=== PATIENT | female | born 1970 | race Caucasian/White ===

== ENCOUNTER → 2016-12-14 | Outpatient (CLI) | payer MEDICAID ==
[~2016-12-14] MED LIST: CARB300C10 PO; MEDR150D9 INJ; TOPI50TA57 PO; ZONI100C48 PO; [UNRECOGNIZED DRUG - CODE] PO
--- NOTE | 2016-12-14 16:30 | DI ---
Indication: ITS.REASON: M25.562 ACUTE PAIN OF LEFT KNEE PROCEDURE: KNEE LEFT 2 VIEW: Encounter: Initial Comparison: None Findings: There is no acute fracture, dislocation or malalignment identified. No significant degenerative change or joint space narrowing. Impression: No acute osseous abnormality. .
== END ==
LOC: IMA 16:01
PROVIDERS: ATTEND Registered Nurse
DX: M25.562 Pain in left knee (principal)

== ENCOUNTER → 2016-12-23 | Outpatient (CLI) | payer MEDICAID | LOC: WC.BC 11:18 | DX: Z12.31 Encounter for screening mammogram for malignant neoplasm of breast (principal); N64.59 Other signs and symptoms in breast ==

== ENCOUNTER 2017-02-04 14:34 | Emergency (ER) | payer MEDICAID ==
[~2017-02-04] VITALS: Ht 162.6 cm; Wt 70.1 kg
[~2017-02-04 14:34] MED LIST changes: +TOPI50TA25 PO; -TOPI50TA57 PO
[2017-02-04 14:37] VITALS: Ht 162.6 cm; Wt 70.1 kg
--- NOTE | 2017-02-04 14:48 | NUR ---
STEVE MARIN IN
--- NOTE | 2017-02-04 14:52 | NUR ---
FRIEND AT BEDSIDE. HE SAYS SHE HAS HAD 12 SEIZURES RECENTLY & SHE IS USUALLY DISORIENTED FOR 45 MINS. HE SAYS THIS IS THE WAY SHE HAS SEIZURES. PT IS FIDGETY & SLOW TO ANSWER OR DOES NOT ANSWER. SHE DOES HAVE EYE CONTACT WITH NURSE
--- NOTE | 2017-02-04 14:58 | ERPDOC ---
Departure Disposition Decision Date: February 04, 2017 Disposition Decision Time: 16:54 Disposition: 01 DISCHARGED HOME, SELF-CARE Impression Impression Impression: Primary Impression: Seizure Severity: Moderate Condition: Stable Seen By: Mid-level only Referrals: JOHNATHAN RUSSO APRN (Family) Patient Instructions: Recurrent Seizures in Adults (ED) Problems/Meds/Labs Reviewed?: Yes Medications reviewed and manag: Yes Additional Instructions: Go home and rest today. Make sure that you are drinking plenty of water at home. Make sure that you are taking your medications as prescribed at home. Follow up care ordered?: Yes Mental Status: Alert, Confused HPI - Fall/Injury General Chief Complaint: Fall Stated Complaint: FALL, CONFUSION Time Seen by Provider: 14:36 Source: patient Exam Limitations: no limitations HPI - Fall/Injury Initial Comments She was at her friends house today and had went inside to go to the bathroom. Her friend states that he had fallen and hit her face on the floor. She has some swelling and an abrasion on the left eyebrow. She does have a history of seizures and is typically post ictal and confused. Upon arrival to Er she is slightly agitated and is not talking. She does follow command and is alert however. Her friend reports this is like her post ictal state. Was noted to have urinary incontinence. Occurred At: home Onset: Rapid Duration: 1/2 hour Severity: moderate Injuries/Pain Location: head, face Context: unknown Loss of Consciousness: unsure Associated Symptoms: other (Difficult to get HPI due to clinical condition) Hx of Similar Symptoms: Yes Allergies: Coded Allergies: No Known Drug Allergies (Verified Adverse Reaction, Unknown, 02/04/17) Past History Past Medical History Hx Echocardiogram: No GI: IBS, constipation Female: UTI Neurological: cerebral hemorrhage, seizures Musculoskeletal: back pain, neck pain Psychological: bipolar, depression Surgical History Denies Surgeries Vaccines Hx Influenza Vaccination: No Hx Tetanus, Diptheria, Pertuss: No (UNKNOWN) Social History Sexuality: male partner Review of Systems Unable to Obtain ROS Due to: clinical condition Physical Exam General General Nourishment: well nourished, well developed, appears stated age, no acute distress, adult General Body Habitus: well groomed Vitals and Pain First Documented Vital Signs Date Time Temp Pulse Resp B/P Pulse Ox O2 Delivery O2 Flow Rate FiO2 02/04/17 14:35 98.5 100 20 111/86 100 Room Air Weight: Kilograms: 70.100 Height (feet): 5 Height (inches): 4.00 Triage Pain Scale: RN VS reviewed by Provider: Yes Normal Exams: Eyes: Pupils are PERRLA w/ EOMI, No scleral icterus, irritation, or foreign bodies noted Neck: Full range of motion, without adenopathy, JVD, bruits or thyromegaly Chest/Resp: Clear all garcia, with good airflow, and symmetry bilaterally CV: Regular rate and rhythm, without murmur or gallop, Pulses 2+ all extremities, capillary refill, <2 seconds all ext., no pedal edema noted Abdomen: Bowel sounds positive, soft, non-tender, non-distended, no hepatosplenomegaly, masses or bruits noted Musculoskeletal: No tenderness, or deformity noted, good range of motion, all extremities Neurologic: Patient is alert Psychiatric: Patient exhibits, appropriate attention, emotion and affect Eyes (brief) Eyes Brief: found: other (She is noted to have ecchymosis, abrasion, and swelling of the left eyebrow.) Differential Diagnoses Considering: Concussion, Contusion, Seizure, Subdural Hematoma, Vasovagal Progress Results/Orders Orders Procedure Category Date Status Time Ct Head W/O Contrast CT 02/04/17 Resulted Cbc W/Auto LAB 02/04/17 Complete Diff-Reflex Manual Bmp - Basic Metabolic LAB 02/04/17 Complete Panel LAB 02/04/17 Complete Qualitative, Urine 15:15 Carbamazepine - LAB 02/04/17 In Process Tegretol - Ams Lab Results Laboratory Tests Test 02/04/17 14:54 02/04/17 15:40 02/04/17 16:20 White Blood Count 5.8T/MM3 Red Blood Count 4.42M/MM3 Hemoglobin 15.1GM/DL Hematocrit 43.9% Mean Corpuscular Volume 99.3UM3 Mean Corpuscular Hemoglobin 34.2UUG Mean Corpuscular Hemoglobin Concent 34.4GM/DL RDW Standard Deviation 41.0FL Platelet Count 220T/MM3 Mean Platelet Volume 11.1UM3 Immature Granulocyte % (Auto) 0.2% Neutrophils (%) (Auto) 68.5% Lymphocytes (%) (Auto) 22.0% Monocytes (%) (Auto) 8.6% Eosinophils (%) (Auto) 0.2% Basophils (%) (Auto) 0.5% Absolute Immature Granulocyte (auto 0.01T/MM3 Absolute Neutrophils (auto) 4.0T/MM3 Absolute Lymphocytes (auto) 1.3T/MM3 Absolute Monocytes (auto) 0.5T/MM3 Absolute Eosinophils (auto) 0.0T/MM3 Absolute Basophils (auto) 0.0T/MM3 Turbidity < 20 Sodium Level 144MEQ/L Potassium Level 3.2MEQ/L Chloride Level 106MEQ/L Carbon Dioxide Level 21MEQ/L Anion Gap 17MEQ/L Blood Urea Nitrogen 8.0MG/DL Creatinine 0.8MG/DL Glomerular Filtration Rate Calc 78 BUN/Creatinine Ratio 10RATIO Glucose Level 118MG/DL Calculated Osmolality 276MOSM/KG Calcium Level 9.4MG/DL Icterus Index < 2 Chemistry Specimen Hemolysis < 15 Urine Test Negative Carbamazepine (Tegretol) Level Pending Progress Progress CBC and BMP today are normal. Ct of head is negative. She is answering questions now and states that she is feeling better. Her roommate is in the room. States that he only called 911 because she fell at the neighbors and was post ictal after her seizure. He could not move her to their house on his own so called EMS to assist with moving patient back to their house. CT CT : Reason for Exam: fall, head injury CT: Head no contrast Interpretation: Normal JANINE VARGAS APRN February 04, 2017 14:57
[2017-02-04] MEDS ORDERED: ZONI100C48 PO (15:03)
[2017-02-04 15:06] LABS: BASOPHILS % (AUTO) 0.5 % (0-2); EOSINOPHILS % (AUTO) 0.2 % (0-4); HCT - HEMATOCRIT 43.9 % (36-46); HGB - HEMOGLOBIN 15.1 GM/DL (12-16); IMMATURE GRANULOCYTE # (AUTO) 0.01 T/MM3 (0.00-0.03); IMMATURE GRANULOCYTE % (AUTO) 0.2 % (0.0-0.5); LYMPHOCYTES # (AUTO) 1.3 T/MM3 (1-4.8); MEAN CORPUSCULAR HGB 34.2 UUG (26-34); MEAN CORPUSCULAR HGB CONC(MCHC 34.4 GM/DL (31-37); MEAN CORPUSCULAR VOLUME 99.3 UM3 (80-100); MEAN PLATELET VOLUME 11.1 UM3 (9.4-12.4); MONOCYTES # (AUTO) 0.5 T/MM3 (0-0.8); MONOCYTES % (AUTO) 8.6 % (0-9.0); NEUTROPHILS % (AUTO) 68.5 % (33-66); RED BLOOD COUNT 4.42 M/MM3 (4.00-5.20); WBC - WHITE BLOOD COUNT 5.8 T/MM3 (4.5-11.0)
[2017-02-04 15:09] LABS: ANION GAP 17 MEQ/L (5-15); BUN/CREATININE RATIO 10 RATIO (6-26); CALCIUM 9.4 MG/DL (8.4-10.2); CHLORIDE 106 MEQ/L (98-107); CO2 - CARBON DIOXIDE 21 MEQ/L (22-30); CREATININE 0.8 MG/DL (0.7-1.2); GLOMERULAR FILTRATION RATE 78; GLUCOSE 118 MG/DL (65-110); POTASSIUM 3.2 MEQ/L (3.6-5); SODIUM 144 MEQ/L (134-144)
--- NOTE | 2017-02-04 15:40 | NUR ---
ACTIVITY UP TO COMMODE. VOIDED FEW CC'S SABAS CLEAR URINE. PT FOLLOWS COMMANDS BUT IS NONVERBAL. PT DOES SHAKE HER HEAD TO YES OR NO.
--- NOTE | 2017-02-04 15:54 | NUR ---
TO CT PER CART
--- NOTE | 2017-02-04 16:02 | NUR ---
RETURNED FROM CT
--- NOTE | 2017-02-04 16:52 | NUR ---
STEVE MARIN IN
[2017-02-04 17:13] VITALS: BP 108/55; PULSE 84; RESP 16; O2SAT 100
--- NOTE | 2017-02-05 09:47 | DI ---
Indication: ITS.REASON: fall, head injury PROCEDURE: CT HEAD W/O CONTRAST: Encounter: Initial Comparison: December 31, 2015 Technique: Axial CT images through the head were performed without contrast. Iterative Reconstruction dose reducing technique was utilized. FINDINGS: The ventricles are of normal size, shape, and configuration for the patient's age. There is no evidence of acute intracranial hemorrhage, midline displacement, or mass effect. The CT attenuation of the brain parenchyma is normal within the cerebellum, brain stem, and cerebral hemispheres. The tympanic cavities and mastoid air cells are free of appreciable disease. There are no definite fractures of the skull base, calvarium, or visualized portion of the midface. IMPRESSION: No CT evidence of acute traumatic intracranial injury. There is a preliminary report by [facility]. .
== END 2017-02-04 17:13 | disposition home or self-care (01) ==
LOC: ED 14:34
DX: S00.12XA Contusion of left eyelid and periocular area, initial encounter (principal); S00.212A Abrasion of left eyelid and periocular area, initial encounter; R56.9 Unspecified convulsions; W19.XXXA Unspecified fall, initial encounter; Y93.89 Activity, other specified; Y92.009 Unspecified place in unspecified non-institutional (private) residence as the place of occurrence of the external cause; Y99.8 Other external cause status
CPT/HCPCS: 80048; 80156; 81025; 85025

== ENCOUNTER 2017-02-05 02:07 | Emergency (ER) | payer MEDICAID ==
[~2017-02-05] VITALS: Ht 162.6 cm; Wt 70.0 kg
[2017-02-05 02:07] VITALS: Ht 162.6 cm; Wt 70.0 kg
--- OUTSIDE RECORDS SUMMARY | 2017-02-05 02:10 | XMS REPORT | Continuity of Care Document ---
Author Author [facility] Organization [facility] Address Unknown Phone Unavailable Support Name Relationship Address Phone JOHNATHAN RUSSO APRN Caregiver [address] [place] [address] Unavailable DESTINEY ACKERMAN MD Caregiver [address] [place] [address] Unavailable SKY CALDWELL Next Of Kin [address] [place] [address] Insurance Providers Guarantor AshutoshPedro Address [address] [place] [id number] Email DENIED/NO COMPUTER OR EMAIL 16 Payer [facility] Community Plan Policy Number [id number] Subscriber's Name Pedro Ibrahim Relationship 18 Self Effective Date 17 Expiration Date 17 Chief Complaint and Reason for Visit Chief Complaint Fall Reason for Visit Seizure Problems Active Problems Medical Problem Onset Date Status Abdominal cramps Unknown Acute Abdominal cramps Unknown Acute Christina rash of groin Unknown Acute Christina rash of groin Unknown Acute Closed head injury Unknown Acute Contusion of ribs Unknown Acute Dehydration Unknown Acute Head contusion Unknown Acute Head contusion Unknown Acute Intertrigo Unknown Acute Intertrigo Unknown Acute Laceration Unknown Acute Laceration of head Unknown Acute Left temporal lobe hemorrhage Unknown Acute Lip laceration Unknown Acute Neck pain Unknown Acute Pruritic rash Unknown Acute Rib pain on right side Unknown Acute Seizure Unknown Acute Seizure Unknown Acute Seizure disorder Unknown Acute Seizure disorder Unknown Acute Tinea pedis Unknown Acute Tooth avulsion Unknown Acute Past Problems Medical Problem Onset Date Seizure Unknown Medications Current Home Medications Medication Dose Units Route Directions Days Qty Instructions Start Date Carbamazepine 300 Mg Cpmp.12hr 300 Mg Oral Twice A Day 07/30/14 Medroxyprogesterone Acetate (Depo-Provera) 150 Mg/1 Ml Syringe 150 Mg Injection [id number] 07/30/14 Topiramate 50 Mg Tablet 50 Mg Oral Every Morning 07/30/14 Topiramate 50 Mg Tablet 100 Mg Oral Bedtime 07/30/14 Zonisamide (Zonegran) 100 Mg Capsule 200 Mg Oral Bedtime 12/31/15 Zonisamide (Zonegran) 100 Mg Capsule 100 Mg Oral Every Morning Past Home Medications Medication Directions Ordered Status Albuterol 17 Gm Aerosol, 05/03/09 Discontinued Baclofen 10 Mg Tablet, 2 Bedtime 10/05/09 Discontinued Carbamazepine (Carbatrol) 300 Mg Capsule, 300 Mg Oral Twice A Day 11/25/10 Discontinued Carbamazepine (Carbatrol) 300 Mg Capsule, 300 Mg Oral Twice A Day 06/23/10 Discontinued Desonide 15 Gm Cream..g., 0 Topically Three Times A Day 05/14/14 Discontinued Hyoscyamine 0.15 Mg Tablet, 0.125 Mg Oral As Needed 01/14/12 Discontinued Ibuprofen (Advil) 100 Mg Tablet, 100 Mg Oral Daily 12/03/10 Discontinued Ketorolac Tromethamine (Toradol) 10 Mg Tablet, 1 As Needed 10/21/09 Discontinued Levaquin , 05/12/09 Discontinued Loperamide Hcl (Imodium) 2 Mg Capsule, As Needed 11/25/10 Discontinued Medroxyprogesterone Acet (Depo-Provera) 150 Mg/Ml Disp.syrin, 150 Mg Intramusc Q3uaicl 11/20/11 Discontinued Metoclopramide Hcl 10 Mg Tablet, 10 Mg Oral Four Times Daily 01/14/12 Discontinued Metoclopramide Hcl (Reglan) 10 Mg Tablet, 10 Mg Oral 11/25/10 Discontinued Metoclopramide Hcl (Reglan) 10 Mg Tablet, 10 Mg Oral Four Times Daily Discontinued Naproxen 500 Mg Tablet, 500 Mg Oral Twice A Day 11/25/10 Discontinued Omeprazole (Prilosec) 20 Mg Capsule., 1 Daily 10/21/09 Discontinued Prednisone , 05/12/09 Discontinued Promethazine Hcl (Phenergan) 25 Mg Tablet, Prn 11/25/10 Discontinued Promethazine Hcl (Phenergan) 25 Mg Tablet, 25 Mg Oral Every 4 Hours Prn 05/16 Discontinued Promethazine Hcl (Phenergan) 25 Mg Tablet, 1 As Needed 10/21/09 Discontinued Ranitidine Hcl 300 Mg Capsule, 300 Mg Oral Daily 01/14/12 Discontinued Ranitidine Hcl 300 Mg Tablet, 300 Mg Oral 04/11/11 Discontinued Tussionex , 05/12/09 Discontinued Zonisamide 100 Mg Capsule, 100 Mg Oral Twice A Day 11/25/10 Discontinued Zonisamide (Zonegran) 25 Mg Capsule, 100 Mg Oral Twice A Day 05/16/10 Discontinued Social History Social History Problem Response Recorded Date/Time Onset Date Status Hx Substance Use No 02/04/2017 2:49pm Not Applicable Not Applicable Hx Alcohol Use No 02/04/2017 2:49pm Not Applicable Not Applicable Tobacco Usage smoke 04/03/2014 8:58am Not Applicable Not Applicable Query Response Start Date Stop Date Smoking Status Current every day smoker Hospital Discharge Instructions No hospital discharge instructions. Plan of Care Discharge Date 02/04/17 5:13pm Disposition 01 DISCHARGED HOME, SELF-CARE Condition at Discharge Stable Instructions/Education Provided Recurrent Seizures in Adults (ED) Prescriptions See Medication Section Referrals JOHNATHAN RUSSO APRN Address: [address] [place] [address] [phone] Additional Instructions/Education Go home and rest today. Make sure that you are drinking plenty of water at home. Make sure that you are taking your medications as prescribed at home. Care Plan and Goals Physician Care Plan Problem:Seizure, Fall Goal: Follow up with primary care provider Instructions: Take medications and follow care plan as discussed/written Functional Status No functional status results. Allergies, Adverse Reactions, Alerts Allergen Type Severity Reaction Status Last Updated No Known Drug Allergies Adverse Reaction Unknown Active 02/04/17 Immunizations Query Response on File Recorded Date/Time Hx Influenza Vaccination No 04/14/15 6:42pm Hx Tetanus, Diptheria, Pertussis N UNKNOWN 04/14/15 7:41pm Hx Influenza Vaccination No 04/14/15 6:42pm Hx Tetanus, Diptheria, Pertussis N UNKNOWN 04/14/15 7:41pm Tdap Vaccine Hx UNKNOWN 02/04/17 2:50pm Vital Signs Acute Vital Signs Vital Response Date/Time Temperature (Fahrenheit) 98.9 deg F (96.8 - 99.1) 02/04/2017 4:21pm Temperature (Calculated Celsius) 37.32698 degrees C (36.0 - 37.3) 02/04/2017 4:21pm Pulse Rate (adult) 84 bpm (60 - 100) 02/04/2017 5:13pm Respiratory Rate 16 breaths/min (10 - 20) 02/04/2017 5:13pm O2 Sat by Pulse Oximetry 100 % (90 - 100) 02/04/2017 5:13pm Blood Pressure 108/55 mm Hg 02/04/2017 5:13pm Height (Feet) 5 feet 02/04/2017 2:37pm Height (Inches) 4.00 inches 02/04/2017 2:37pm Weight (Kilograms) 70.100 kg 02/04/2017 2:37pm Body Mass Index (BMI) 26.0 02/04/2017 2:37pm Results Laboratory Results Test Name Result Units Flags Reference Collection Date/Time Result Date/ Time Comments White Blood Count 5.8 T/MM3 4.5-11.0 02/04/2017 2:54pm 02/04/2017 3: 06pm Red Blood Count 4.42 M/MM3 4.00-5.20 02/04/2017 2:54pm 02/04/2017 3: 06pm Hemoglobin 15.1 GM/DL 12-16 02/04/2017 2:54pm 02/04/2017 3:06pm Hematocrit 43.9 % 36-46 02/04/2017 2:54pm 02/04/2017 3:06pm Mean Corpuscular Volume 99.3 UM3 80-100 02/04/2017 2:54pm 02/04/2017 3: 06pm Mean Corpuscular Hemoglobin 34.2 UUG H 26-34 02/04/2017 2:54pm 2016 3:06pm Mean Corpuscular Hemoglobin Concent 34.4 GM/DL 31-37 02/04/2017 2:54pm 02/04/2017 3:06pm RDW Standard Deviation 41.0 FL 36.9-50.2 02/04/2017 2:54pm 02/04/2017 3 :06pm Platelet Count 220 T/MM3 130-400 02/04/2017 2:54pm 02/04/2017 3:06pm Mean Platelet Volume 11.1 UM3 9.4-12.4 02/04/2017 2:54pm 02/04/2017 3: 06pm Neutrophils (%) (Auto) 68.5 % H 33-66 02/04/2017 2:54pm 02/04/2017 3: 06pm Lymphocytes (%) (Auto) 22.0 % L 23-45 02/04/2017 2:54pm 02/04/2017 3: 06pm Monocytes (%) (Auto) 8.6 % 0-9.0 02/04/2017 2:54pm 02/04/2017 3:06pm Eosinophils (%) (Auto) 0.2 % 0-4 02/04/2017 2:54pm 02/04/2017 3:06pm Basophils (%) (Auto) 0.5 % 0-2 02/04/2017 2:54pm 02/04/2017 3:06pm Immature Granulocyte % (Auto) 0.2 % 0.0-0.5 02/04/2017 2:54pm 2016 3:06pm Absolute Neutrophils (auto) 4.0 T/MM3 1.8-7.7 02/04/2017 2:54pm 2016 3:06pm Absolute Lymphocytes (auto) 1.3 T/MM3 1-4.8 02/04/2017 2:54pm 2016 3:06pm Absolute Monocytes (auto) 0.5 T/MM3 0-0.8 02/04/2017 2:54pm 02/04/2017 3:06pm Absolute Eosinophils (auto) 0.0 T/MM3 0-0.5 02/04/2017 2:54pm 2016 3:06pm Absolute Basophils (auto) 0.0 T/MM3 0-0.2 02/04/2017 2:54pm 02/04/2017 3:06pm Absolute Immature Granulocyte (auto 0.01 T/MM3 0.00-0.03 02/04/2017 2: 54pm 02/04/2017 3:06pm Icterus Index < 2 0-7 02/04/2017 2:pm 02/04/2017 3:09pm Chemistry Specimen Hemolysis < 15 0-25 02/04/2017 2:54pm 02/04/2017 3 :09pm 0-25: Specimen Exhibited No Hemolysis. Turbidity < 20 0-20 02/04/2017 2:pm 02/04/2017 3:09pm Sodium Level 144 MEQ/L 134-144 02/04/2017 2:54pm 02/04/2017 3:09pm Potassium Level 3.2 MEQ/L L 3.6-5 02/04/2017 2:54pm 02/04/2017 3:09pm Chloride Level 106 MEQ/L 98-107 02/04/2017 2:54pm 02/04/2017 3:09pm Carbon Dioxide Level 21 MEQ/L L 22-30 02/04/2017 2:54pm 02/04/2017 3: 09pm Anion Gap 17 MEQ/L H 5-15 02/04/2017 2:54pm 02/04/2017 3:09pm Blood Urea Nitrogen 8.0 MG/DL 7-17 02/04/2017 2:54pm 02/04/2017 3:09pm Creatinine 0.8 MG/DL 0.7-1.2 02/04/2017 2:54pm 02/04/2017 3:09pm BUN/Creatinine Ratio 10 RATIO 6-26 02/04/2017 2:54pm 02/04/2017 3:09pm Glomerular Filtration Rate Calc 78 02/04/2017 2:54pm 02/04/2017 3: 09pm Glucose Level 118 MG/DL H 65-110 02/04/2017 2:54pm 02/04/2017 3:09pm Calculated Osmolality 276 MOSM/KG 261-280 02/04/2017 2:54pm 02/04/2017 3:09pm Calcium Level 9.4 MG/DL 8.4-10.2 02/04/2017 2:54pm 02/04/2017 3:09pm Procedures Procedure Status Date Provider(s) X-ray exam of knee 1 or 2 Completed 12/14/16 Breast tomosynthesis bi Completed 12/23/16 Scr mammo bi incl cad Completed 12/23/16 Encounters Encounter Location Arrival/Admit Date Discharge/Depart Date Attending Provider Departed Emergency Room [facility] 02/04/17 2:34pm 02/04/17 5: 13pm DESTINEY ACKERMAN MD Registered Clinic [facility] 12/23/16 11:18am [facility] Registered Clinic [facility] 12/14/16 4:01pm JOHNATHAN RUSSO APRN Recent Diagnosis
[2017-02-05] MEDS ORDERED: LORAZEPAM 2 MG/ML INJECTION IV ONE (02:15)
--- NOTE | 2017-02-05 02:15 | NUR ---
STATUS PT IS VERY AGITATED AND TRYING TO SCOOT OFF THE CART GRABS AT IVL IN HER HAND AND TRIES TO PULL IT OUT EYES ARE OPEN AND PT IS HAVING EYE CONTACT WITH STAFF, BUT NOT SEEMING TO COMPREHEND AND DOES NOT FOLLOW COMMANDS
--- NOTE | 2017-02-05 02:17 | NUR ---
ATIVAN IV ATIVAN GIVEN ORDERED
--- NOTE | 2017-02-05 02:20 | NUR ---
AGITATION PT HELD BY 2 STAFF TO KEEP ON CART AND PREVENT IVL FROM BEING PULLED OUT PT NOT TRYING TO VERBALIZE BUT HAS FROWN ON HER FACE AND STARING INTO STAFFS EYES LIKE SHE IS TRYING TO CONCENTRATE. DOES NOT FOLLOW COMMANDS, WILL NOT LEAVE SAO2 PROBE ON FINGER AND TRYING TO REMOVE THE B/P CUFF. TRIES TO PULL AWAY WHILE GETTING AXILLARY TEMP.
--- NOTE | 2017-02-05 02:22 | ERPDOC ---
Departure Disposition Decision Date: February 05, 2017 Disposition Decision Time: 03:51 Disposition: 01 DISCHARGED HOME, SELF-CARE Impression Impression Impression: Primary Impression: Agitation Additional Impression: Confusion Severity: Severe Condition: Improved Seen By: Physician only Referrals: JOHNATHAN RUSSO APRN (Family) Patient Instructions: Bipolar Disorder (ED) Problems/Meds/Labs Reviewed?: Yes Medications reviewed and manag: Yes Additional Instructions: Take prescribed medication only as directed See Dr. Mancera next week. Call for appointment Follow up care ordered?: Yes Mental Status: Alert HPI - Psychosocial General Stated Complaint: CONFUSED Time Seen by MD: 02:10 Source: EMS Exam Limitations: clinical condition HPI - Psychosocial Initial Comments Patient presents by EMS with complaints by her roommate that the patient was seen earlier today for a seizure, after extensive workup including normal lab and an CT scan, the patient went home and took her Topamax for her seizure disorder. The roommate states that he thinks that she took too much of the Topamax, and since then has been confused and agitated like she is after she has a seizure. Patient has had multiple episodes this week of confusion with agitation, and the people who know the patient states this is how she acts after she has had seizures. Patient is noncommunicative at this time, stares blankly, and is not responsive to verbal commands. Patient is awake, seems alert, but disoriented. Occurred At: home Onset: Rapid, Gradual Severity: moderate Associated Symptoms: impaired concentration Allergies: Coded Allergies: No Known Drug Allergies (Verified Adverse Reaction, Unknown, 02/04/17) Past History Past Medical History Hx Echocardiogram: No GI: IBS, constipation Female: UTI Neurological: cerebral hemorrhage, seizures Musculoskeletal: back pain, neck pain Psychological: bipolar, depression Surgical History Denies Surgeries Vaccines Hx Influenza Vaccination: No Hx Tetanus, Diptheria, Pertuss: No (UNKNOWN) Social History Smoking Status: Current every day smoker Does patient use chewing tobac: No Second Hand Exposure: No Substance Use Type: does not use Alcohol Intake: none Sexuality: male partner Record Review Pertinent history updated: Yes Review of Systems Unable to Obtain ROS Due to: clinical condition Comments Per EMS, the patient's roommate stated that the patient had no other review of symptoms that were positive on the scene ENMT Ears: DENIES: pain Hearing: DENIES: hearing loss, tinnitus Balance: DENIES: vertigo Mouth/Throat: DENIES: change in swallowing, change in voice, hoarsness, painful swallowing, sore throat Physical Exam General General Nourishment: well nourished, well developed, appears stated age General Body Habitus: disheveled Vitals and Pain Weight: Kilograms: Height (feet): 5 Height (inches): 4.00 Triage Pain Scale: RN VS reviewed by Provider: Yes Comments Patient looks absolutely about, appears disoriented, but is alert. Normal Exams: Head: Normocephalic w/o trauma Eyes: Pupils are PERRLA w/ EOMI, No scleral icterus, irritation, or foreign bodies noted ENMT: No facial trauma, nasal exudates, pharyngeal erythema, or exudates are noted Neck: Full range of motion, without adenopathy, JVD, bruits or thyromegaly Chest/Resp: Clear all garcia, with good airflow, and symmetry bilaterally CV: Regular rate and rhythm, without murmur or gallop, Pulses 2+ all extremities, capillary refill, <2 seconds all ext., no pedal edema noted Abdomen: Bowel sounds positive, soft, non-tender, non-distended, no hepatosplenomegaly, masses or bruits noted Lymphatic: No lymphadenopathy, or lymphedema noted Musculoskeletal: No tenderness, or deformity noted, good range of motion, all extremities Integumentary: No rashes, hives, or bruising noted, hair and nails, without abnormality Neurologic: Patient is alert, and oriented, cranial nerves, motor/sensory/ cerebellar, exams w/o gross deficits, to observation Neurologic (brief) Neurological Brief: FOUND: CN w/o gross def to obs, motor-no gross deficits, sensory-no gross deficits, NOT FOUND: ataxia Psychiatric (brief) Psychiatric Brief: FOUND: alert, NOT FOUND: attentive, normal affect, oriented Progress Results/Orders Orders Procedure Category Date Status Time Iv Lock (Ed Only) EDM 02/05/17 Transmitted 02:15 Cmp - Comprehensive LAB 02/05/17 Complete Metabolic Ethanol LAB 02/05/17 Complete Drug Screen LAB 02/05/17 [place] [facility] [place] Ua, Dip Wreflex LAB 02/05/17 Complete [employer] 02:15 LAB 02/05/17 Complete Qualitative, Urine 02:15 Cbc W/Auto LAB 02/05/17 Complete Diff-Reflex Manual Prolactin LAB 02/05/17 Complete 02:15 Lorazepam (Ativan) PHA 02/05/17 Complete 02:15 Normal Saline (Normal PHA 02/05/17 Complete Saline Iv) 02:45 Lab Results Laboratory Tests Test 02/05/17 02:36 02/05/17 02:37 02/05/17 02:40 Turbidity < 20 Sodium Level 142MEQ/L Potassium Level 3.2MEQ/L Chloride Level 107MEQ/L Carbon Dioxide Level 18MEQ/L Anion Gap 17MEQ/L Blood Urea Nitrogen 8.0MG/DL Creatinine 0.8MG/DL Glomerular Filtration Rate Calc 78 BUN/Creatinine Ratio 10RATIO Glucose Level 106MG/DL Calculated Osmolality 271MOSM/KG Calcium Level 9.5MG/DL Total Bilirubin 0.70MG/DL Icterus Index < 2 Aspartate Amino Transf (AST/SGOT) 15U/L Alanine Aminotransferase (ALT/SGPT) 32U/L Alkaline Phosphatase 84U/L Total Protein 7.1G/DL Albumin 4.7G/DL Globulin 2.4G/DL Albumin/Globulin Ratio 2.0RATIO Chemistry Specimen Hemolysis 15 Alcohol, Quantitative <10MG/DL White Blood Count 8.0T/MM3 Red Blood Count 4.32M/MM3 Hemoglobin 14.7GM/DL Hematocrit 42.3% Mean Corpuscular Volume 97.9UM3 Mean Corpuscular Hemoglobin 34.0UUG Mean Corpuscular Hemoglobin Concent 34.8GM/DL RDW Standard Deviation 40.9FL Platelet Count 222T/MM3 Mean Platelet Volume 11.3UM3 Immature Granulocyte % (Auto) 0.1% Neutrophils (%) (Auto) 69.9% Lymphocytes (%) (Auto) 19.2% Monocytes (%) (Auto) 9.9% Eosinophils (%) (Auto) 0.5% Basophils (%) (Auto) 0.4% Absolute Immature Granulocyte (auto 0.01T/MM3 Absolute Neutrophils (auto) 5.6T/MM3 Absolute Lymphocytes (auto) 1.5T/MM3 Absolute Monocytes (auto) 0.8T/MM3 Absolute Eosinophils (auto) 0.0T/MM3 Absolute Basophils (auto) 0.0T/MM3 Prolactin < 0.1NG/ML Urine Collection Type Straight cath Urine Color Yellow Urine Turbidity Clear Urine pH 7.0 Urine Specific Kyle 1.015 Urine Protein Negative Urine Glucose (UA) Negative Urine Ketones 3+ Urine Blood Negative Urine Nitrite Negative Urine Bilirubin 2+ Urine Urobilinogen 2.0EU/DL Urine Leukocyte Esterase Negative Urinalysis Comment Microscopic not ind. Urine Test Negative Urine Opiates Screen NegativeNG/ML Urine Oxycodone Screen NegativeNG/ML Urine Methadone Screen NegativeNG/ML Urine Propoxyphene Screen NegativeNG/ML Urine Barbiturates Screen NegativeNG/ML Urine Tricyclic Antidepressants NegativeNG/ML Urine Phencyclidine Screen NegativeNG/ML Urine Amphetamines Screen NegativeNG/ML Urine Methamphetamines Screen NegativeNG/ML Urine Benzodiazepines Screen NegativeNG/ML Urine Cocaine Screen NegativeNG/ML Urine Cannabinoids Screen NegativeNG/ML Medications Current ED Medications Lorazepam 2 mg 2 mg O ONCE IV ; Start 02/05/17 at 02:15; Stop 02/05/17 at 02:18 ; Status DC Sodium Chloride (Normal Saline IV) 1,000 ml @ 0 mls/hr Q0M ONCE IV ; Start at 02:45; Stop 02/05/17 at 02:46; Status DC Progress Progress Due to the patient's agitation, and her grasping at her IV as well as trying to climb out of bed, patient is given 2 mg Ativan IV CBC - normal CMP - normal EtOH - negative UDS - normal UA/P - normal/negative Prolactin - normal After Ativan patient has been sleeping peacefully, without agitation. This point is uncertain whether the patient has been having psychogenic agitation or has taken too much of her seizure medication. Patient does not exhibit any toxidrome for medication overdose, with bipolar history, start the patient most likely has histrionic confusion with agitation. Pt released in the care of her significant other. JANETTE LUNA MD February 05, 2017 02:22
--- NOTE | 2017-02-05 02:39 | NUR ---
BLADDER SCAN PT AROUSES WHEN STAFF ADJUSTS HER CLOTHING FOR BLADDER SCAN ANOTHER STAFF HAS TO HOLD HER ARMS TO GET THE SCAN DONE EXPLAINED THIS TO PT SEVERAL TIMES AND SHE DOES SAY "OK", BUT STILL PULLS AT HER GOWN
--- NOTE | 2017-02-05 02:40 | NUR ---
ST CATH #[address] CATH INSERTED TO DRAIN BLADDER OF 150CC CLEAR SABAS URINE PT AWAKE AND SEMI-COOPERATIVE WITH PROCEDURE LAB HERE FOR URINE SPEC FOR UDS AND UA
--- NOTE | 2017-02-05 02:44 | NUR ---
STATUS PT PULLING AT CLOTHES AND PUSHING AT STAFF WHEN TRYING TO GET JEANS OFF FOR CATH SHE IS CALM AND TURNS ON HER SIDE AFTER PANTIES BACK ON AND SHE IS COVERED WITH BLANKET AGAIN.
[2017-02-05] MEDS ORDERED: NORMAL SALINE 1,000 ML IV ONE (02:45)
--- NOTE | 2017-02-05 02:47 | NUR ---
IV FLUID #1 IV 1000CC NS STARTED AT 999CC/HR IV SITE PATENT WITHOUT REDNESS OR SWELLING STAFF HAS TO SIT AND HOLD HAND OVER IV SITE, OTHERWISE SHE KEEPS GRABBING FOR THE IV PT REMAINS AGITATED AND WHEN SHE TRIES TO COMMUNICATE WORDS ARE STILL GARBLED AND INCOMPREHENSIBLE. DR LUNA AWARE OF PT STATUS
[2017-02-05 02:48] LABS: BLOOD, URINE NEGATIVE (NEGATIVE); COLOR,URINE YELLOW (YELLOW); LEUKOCYTE ESTERASE ,URINE NEGATIVE (NEGATIVE); NITRITE,URINE NEGATIVE (NEGATIVE)
[2017-02-05 02:49] LABS: BASOPHILS % (AUTO) 0.4 % (0-2); EOSINOPHILS % (AUTO) 0.5 % (0-4); HCT - HEMATOCRIT 42.3 % (36-46); HGB - HEMOGLOBIN 14.7 GM/DL (12-16); IMMATURE GRANULOCYTE # (AUTO) 0.01 T/MM3 (0.00-0.03); IMMATURE GRANULOCYTE % (AUTO) 0.1 % (0.0-0.5); LYMPHOCYTES # (AUTO) 1.5 T/MM3 (1-4.8); LYMPHOCYTES % (AUTO) 19.2 % (23-45); MEAN CORPUSCULAR HGB CONC(MCHC 34.8 GM/DL (31-37); MEAN CORPUSCULAR VOLUME 97.9 UM3 (80-100); MEAN PLATELET VOLUME 11.3 UM3 (9.4-12.4); MONOCYTES # (AUTO) 0.8 T/MM3 (0-0.8); MONOCYTES % (AUTO) 9.9 % (0-9.0); NEUTROPHILS #(AUTO)-ABSOLUTE 5.6 T/MM3 (1.8-7.7); NEUTROPHILS % (AUTO) 69.9 % (33-66); RED BLOOD COUNT 4.32 M/MM3 (4.00-5.20)
[2017-02-05 02:56] LABS: AMPHETAMINE SCREEN,URINE NEGATIVE; BARBITURATE SCREEN,URINE NEGATIVE; BENZODIAZEPINES SCREEN,URINE NEGATIVE; CANNABINOID SCREEN,URINE NEGATIVE; COCAINE SCREEN,URINE NEGATIVE; METHADONE SCREEN, URINE NEGATIVE; METHAMPHETAMINE SCREEN, URINE NEGATIVE; OPIATE SCREEN,URINE NEGATIVE; PHENCYCLIDINE SCREEN,URINE NEGATIVE; TRICYCLIC ANTIDEPRESSANT,URINE NEGATIVE
[2017-02-05 02:57] LABS: ALBUMIN 4.7 G/DL (3.5-5.0); ALKALINE PHOSPHATASE 84 U/L (38-126); ALT (SGPT) 32 U/L (9-52); ANION GAP 17 MEQ/L (5-15); AST (SGOT) 15 U/L (14-36); BUN/CREATININE RATIO 10 RATIO (6-26); CALCIUM 9.5 MG/DL (8.4-10.2); CHLORIDE 107 MEQ/L (98-107); CO2 - CARBON DIOXIDE 18 MEQ/L (22-30); CREATININE 0.8 MG/DL (0.7-1.2); ETHANOL <10 MG/DL (<10); GLOMERULAR FILTRATION RATE 78; GLUCOSE 106 MG/DL (65-110); POTASSIUM 3.2 MEQ/L (3.6-5); SODIUM 142 MEQ/L (134-144); TOTAL PROTEIN 7.1 G/DL (6.3-8.2)
--- NOTE | 2017-02-05 03:12 | NUR ---
STATUS PT IS ASLEEP AND RELAXED NOW RESP EVEN AND UNLABORED
--- NOTE | 2017-02-05 03:53 | NUR ---
IV FLUID IV NS INFUSED IV SITE WITHOUT REDNESS OR SWELLING PT IS RESTING QUIETLY
--- NOTE | 2017-02-05 04:18 | NUR ---
STATUS PT AROUSES TO DEEP TOUCH STIMULATION ABLE TO SIT UP ON CART WITH STAFF ASSIST, COULD NOT SIT UP FROM LAYING ON OWN PT CHANGED BACK INTO STREET CLOTHES WITH SOME ASSIST FROM PT. SHE IS ABLE TO ADJUST HER PANTIES AND JEANS, PULLS SHIRT DOWN OVER HER HEAD WITH SOME GUIDENCE. HER MOVEMENT IS IN A RUSHED MOTION THAT IS MORE LIKE TINY SPURTS OF ENERGY THEN STOPS. SHE TRIES TO PUSH STAFF AWAY WHEN WE TRY TO SLOW HER DOWN. ASSISTED INTO W/C AND SHE IS TRYING TO SCOOT THE W/C FORWARD EVEN THOUGH THERE IS NO WHERE FORWARD SHE CAN GO. TRYING TO GET HER TO PUT FEET ON THE PEDALS, BUT SHE JUST MOVES THEM UP AND DOWN, WILL NOT KEEP FEET ON THEM. THEN SHE TRIES TO SCOOT OUT OF THE W/C WHEN STAFF IS NOT PUSHING HER OUT OF ROOM.
--- NOTE | 2017-02-05 04:28 | NUR ---
DR DR LUNA AWARE THAT 2 STAFF IS HAVING TO WORK WITH PT TO GET HER INTO W/C AND REMAIN IN PLACE. UNABLE TO REASON WITH PT, SHE WILL NOT FOLLOW COMMANDS, AND SHE IS NOT TALKING IN WORDS THAT ARE UNDERSTOOD. SHE IS MAKING MINIMAL ATTEMPT TO TALK, CAN UNDERSTAND THE WORD "HOME", BUT NOTHING MORE. OKAY TO DC TO HOME
--- NOTE | 2017-02-05 04:31 | NUR ---
IVL IVL DC'D WITH CATH INTACT DRSG APPLIED TO IV SITE
--- NOTE | 2017-02-05 04:34 | NUR ---
INSTRUCTIONS DISMISSAL INSTRUCTIONS READ TO PT SHE IS NOT ABLE TO SIGN DISMISSAL FORM AND S.O. IS OUTSIDE IN THE TRUCK WAITING FOR HER. PT IS RESTLESS IN THE W/C AND TRYING TO SCOOT OUT OF THE CHAIR. THE INSTRUCTIONS PUT IN THE BAG WITH HER CELL PHONE/CHILDCARE WORKER AND WALLET. S.O. TOLD THE INSTRUCTIONS WERE IN THE BAG AND REVIEWED FOLLOW-UP INSTRUCTIONS WITH HIM. HE TOLD STAFF THAT SHE DOES WHAT SHE WANTS TO AND HE CAN'T STOP HER.
[2017-02-05 04:35] VITALS: BP 101/62; PULSE 108; RESP 18; TEMP 98.2; O2SAT 99
--- NOTE | 2017-02-05 04:35 | NUR ---
DISMISS PT DISMISSED PER W/C WITH SIGNIFICANT OTHER ESCORTED TO TRUCK BY RN PT IS ABLE TO STAND, GRAB AHOLD OF THE HAND PIECE TO PULL SELF UP INTO TRUCK, SIT DOWN AND ALLOWS STAFF TO FASTEN SEAT BELT.
== END 2017-02-05 04:35 | disposition home or self-care (01) ==
LOC: ED 02:07
DX: R41.0 Disorientation, unspecified (principal); R45.1 Restlessness and agitation; Z79.899 Other long term (current) drug therapy
CPT/HCPCS: 51701; 80053; 80306; 80307; 81003; 81025; 84146; 85025; 99284; J2060; J7030